=== PATIENT | male | born 1975 | race Two or more races ===

== ENCOUNTER 2019-02-02 03:41 | Emergency (ER) | payer OTHER ==
[~2019-02-02] VITALS: Ht 175.3 cm; Wt 156.0 kg
[2019-02-02] MEDS ORDERED: PROMETH-CODEIN 65 ML PO (05:57)
[2019-02-02] MEDS ORDERED: TESSALON PERLE100 M1 PO (05:57)
== END 2019-02-02 06:00 | disposition home or self-care (01) ==
LOC: ER 03:41
DX: R05 Cough (principal)

== ENCOUNTER 2022-10-17 14:13 | Emergency (ER) | payer OTHER ==
[~2022-10-17] VITALS: Ht 175.3 cm; Wt 139.7 kg
[~2022-10-17 14:13] MED LIST: PROMETH-CODEIN 65 ML PO; TESSALON PERLE100 M1 PO
== END 2022-10-17 18:43 | disposition home or self-care (01) ==
LOC: ER 14:13
DX: R07.9 Chest pain, unspecified (principal); R42 Dizziness and giddiness; Z20.822 Contact with and (suspected) exposure to COVID-19

== ENCOUNTER 2023-06-03 09:30 | Outpatient (CLI) | payer OTHER | END 2023-06-03 09:40 | disposition home or self-care (01) | LOC: PPH VACUNA 09:30 | PROVIDERS: ATTEND Emergency Medicine Pediatric Emergency Medicine | DX: Z23 Encounter for immunization (principal) ==

== ENCOUNTER 2023-10-24 13:15 | Emergency (ER) | payer OTHER ==
[~2023-10-24] VITALS: Ht 175.3 cm; Wt 158.8 kg
[2023-10-24] MEDS ORDERED: DILTIAZEM HCL 25 MG/5 ML VIAL IV ONE (13:32)
[2023-10-24] MEDS ORDERED: DILTIAZEM HCL 25 MG/5 ML VIAL IV STA (13:43)
[2023-10-24 13:56] LABS: HEMATOCRIT 47.4 % (39.0-48.0); HEMOGLOBIN 15.9 g/dL (13-16.00); MEAN CELL VOLUME 82.3 fL (80.0-100.00); MEAN CORPUSCULAR HEMOGLOBIN 27.7 pg (27.00-32.0); MEAN CORPUSCULAR HGB CONC 33.6 g/dl (32.0-36.0); PLATELET COUNT 180 K/uL (150-450); RED BLOOD COUNT 5.76 M/uL (4.00-6.00)
[2023-10-24 15:18] LABS: INR 1.06; PARTIAL THROMBOPLASTIN TIME 30.1 SECONDS (22.0-34.0); PROTHROMBIN TIME 11.1 SECONDS (9.0-11.5)
[2023-10-24 15:28] LABS: ALBUMIN 3.4 gm/dL (3.4-5.0); BILIRUBIN TOTAL 0.3 mg/dL (0.3-1.2); CREATININE SERUM 1.24 mg/dL (0.70-1.30); GFR 62.49; GLOBULINA 4.1 G/DL (2.4-3.5); POTASSIUM 4.24 mEq/L (3.5-5.1); TOTAL PROTEIN 7.5 gm/dL (6.4-8.2)
== END 2023-10-24 19:31 | disposition home or self-care (01) ==
LOC: ER 13:16
PROVIDERS: General Practice
DX: I48.91 Unspecified atrial fibrillation (principal)

== ENCOUNTER 2023-12-04 14:21 | Emergency (ER) | payer OTHER ==
[~2023-12-04] VITALS: Ht 175.3 cm; Wt 139.7 kg
[2023-12-04] MEDS ORDERED: CARVEDILOL25 MG (14:40)
[2023-12-04] MEDS ORDERED: SPIRONOLACTONE25 MG PO (14:40)
[2023-12-04] MEDS ORDERED: COZAAR100 MG PO (14:41)
[2023-12-04] MEDS ORDERED: TOPROL XL200 MG (14:41)
[2023-12-04] MEDS ORDERED: SIMVASTATIN5 MG (14:41)
[2023-12-04] MEDS ORDERED: METHYLPREDNISOLONE SOD SUCC 125 MG VIAL IV ONE (15:15)
[2023-12-04] MEDS ORDERED: IPRATROPIUM BROMIDE 0.5 MG/2.5 ML AMPUL.NEB IH SCH (15:15)
[2023-12-04] MEDS ORDERED: LEVALBUTEROL HCL 1.25 MG/3 ML SOLUTION IH SCH (15:15)
[2023-12-04] MEDS ORDERED: GUAIFENESIN/DEXTROMETHORPHAN 10ML BLIST.PACK PO ONE ×2 (15:15→15:20)
[2023-12-04] MEDS ORDERED: METHYLPREDNISOLONE SOD SUCC 125 MG VIAL ONE (15:20)
[2023-12-04 15:44] LABS: HEMATOCRIT 44.8 % (39.0-48.0); MEAN CELL VOLUME 83.4 fL (80.0-100.00); MEAN CORPUSCULAR HEMOGLOBIN 27.9 pg (27.00-32.0); MEAN CORPUSCULAR HGB CONC 33.4 g/dl (32.0-36.0); PLATELET COUNT 146 K/uL (150-450); RED BLOOD COUNT 5.38 M/uL (4.00-6.00); RED CELL DISTRIBUTION WIDTH 14.1 % (11.5-14.5)
[2023-12-04 16:31] LABS: ALBUMIN 3.6 gm/dL (3.4-5.0); BILIRUBIN TOTAL 0.52 mg/dL (0.3-1.2); CALCIUM 9.2 mg/dL (8.5-10.1); CREATININE SERUM 1.35 mg/dL (0.70-1.30); GFR 56.65; GLOBULINA 3.9 G/DL (2.4-3.5); POTASSIUM 4.4 mEq/L (3.5-5.1); TOTAL PROTEIN 7.5 gm/dL (6.4-8.2)
[2023-12-04] MEDS ORDERED: IPRATROPIUM BROMIDE 0.5 MG/2.5 ML AMPUL.NEB IH ONE (17:05)
[2023-12-04] MEDS ORDERED: LEVALBUTEROL HCL 0.63 MG/3 ML SOLUTION IH ONE (17:05)
[2023-12-04 17:20] LABS: URINE APPEARANCE Clear; URINE BILIRRUBIN Negative (NEGATIVE); URINE BLOOD Negative; URINE COLOR Yellow; URINE GLUCOSE Negative (NEGATIVE); URINE KETONE Negative (NEGATIVE); URINE LEUKOCYTE Negative; URINE NITRATE Negative; URINE PROTEIN Trace (NEGATIVE); URINE UROBILINOGEN 0.2 E.U./dl
[2023-12-04 17:24] LABS: URINE BACTERIA 49.1 uL (0.0-1933); URINE CAST 7.32 uL (0.0-1.40); URINE EPITHELIAL CELLS 5.8 uL (0.0-38.8); URINE RBC 3.9 uL (0.0-20.8); URINE WBC 4.1 uL (0.0-23.2)
[2023-12-04] MEDS ORDERED: ASPIRIN 81 MG TAB.CHEW PO ONE (19:30)
[2023-12-04] MEDS ORDERED: DILTIAZEM HCL 125 MG in 0.9 % SODIUM CHLORIDE 100 ML IV SCH (19:45)
[2023-12-04] MEDS ORDERED: ACETAMINOPHEN 500 MG GEL..CAP PO PRN (19:45)
[2023-12-04] MEDS ORDERED: ENOXAPARIN SODIUM 100 MG/ML SYRINGE SUBCUTANEO SCH (21:00)
[2023-12-05] MEDS ORDERED: FAMOTIDINE/PF 20 MG in 0.9 % SODIUM CHLORIDE 8 ML IV PUSH SCH (09:00)
[2023-12-05] MEDS ORDERED: SPIRONOLACTONE 25 MG TABLET PO SCH (09:00)
[2023-12-05] MEDS ORDERED: SIMVASTATIN 40 MG TABLET PO SCH (17:00)
== END 2023-12-04 20:14 | disposition left against medical advice (07) ==
LOC: ER 14:21
PROVIDERS: Nurse Practitioner Family
DX: J06.9 Acute upper respiratory infection, unspecified (principal); R07.89 Other chest pain; R06.02 Shortness of breath; I10 Essential (primary) hypertension; E78.49 Other hyperlipidemia; N20.0 Calculus of kidney; E66.01 Morbid (severe) obesity due to excess calories; G47.33 Obstructive sleep apnea (adult) (pediatric); I48.91 Unspecified atrial fibrillation; Z20.822 Contact with and (suspected) exposure to COVID-19